=== PATIENT | female | born 1955 | race African-American/Black ===

== ENCOUNTER 2022-12-15 05:29 | Day surgery (SDC) | payer OTHER ==
[2022-12-15 08:06] VITALS: BMI 27.6
[2022-12-15 09:23] VITALS: TEMP 97.8
[2022-12-15 09:36] VITALS: BP 163/80; PULSE 86; RESP 21
== END 2022-12-15 09:29 | disposition home or self-care (01) ==
LOC: JASU-ENDO 05:29
PROVIDERS: ATTEND Internal Medicine Gastroenterology
PROC: 0DJD8ZZ Inspection of Lower Intestinal Tract, Via Natural or Artificial Opening Endoscopic (ICD-10-PCS; principal; 2022-12-15 09:00)
DX: Z12.11 Encounter for screening for malignant neoplasm of colon (principal); K64.8 Other hemorrhoids; I10 Essential (primary) hypertension; E11.9 Type 2 diabetes mellitus without complications; Z79.84 Long term (current) use of oral hypoglycemic drugs
CPT/HCPCS: 82962